=== PATIENT | male | born 1995 | race Two or more races ===

== ENCOUNTER 2021-12-18 19:24 | Emergency (ER) | payer OTHER ==
[2021-12-18 20:00] VITALS: TEMP 98.3; BMI 27.8
[2021-12-18] MEDS ORDERED: IBUPROFEN 600 MG TABLET (FP) PO ONE ×2 (20:24→20:39)
[2021-12-18 20:37] VITALS: BP 116/66
[2021-12-18 22:24] VITALS: PULSE 100
[2021-12-19 13:09] LABS: SARS-CoV-2 NAA Not Detected (Not Detected)
== END 2021-12-18 22:42 | disposition home or self-care (01) ==
LOC: JER 19:24
DX: M79.10 Myalgia, unspecified site (principal)
CPT/HCPCS: 87804; 99283-25; C9803; U0003; U0005

== ENCOUNTER 2021-12-20 03:45 | Emergency (ER) | payer OTHER ==
[2021-12-20 04:04] VITALS: BP 124/83; PULSE 100; TEMP 98.4; BMI 29.9
[2021-12-20] MEDS ORDERED: KETOROLAC TROMETHAMINE 30 MG/1 ML VIAL IM ONE (04:49)
[2021-12-20] MEDS ORDERED: PENICILLIN G BENZATHINE 1,200,000 UNIT/2 ML PFS IM ONE ×2 (04:49→04:57)
[2021-12-20] MEDS ORDERED: KETOROLAC TROMETHAMINE 30 MG/1 ML VIAL ONE (04:56)
== END 2021-12-20 05:55 | disposition home or self-care (01) ==
LOC: JER 03:45
PROC: 3E023GC Introduction of Other Therapeutic Substance into Muscle, Percutaneous Approach (ICD-10-PCS; principal; 2021-12-20)
DX: J02.0 Streptococcal pharyngitis (principal)
CPT/HCPCS: 87651; 99284-25

== ENCOUNTER 2023-07-24 13:46 | Emergency (ER) | payer OTHER ==
[2023-07-24 13:57] VITALS: BP 124/79; PULSE 87; RESP 16; TEMP 97.5
== END 2023-07-24 16:08 | disposition home or self-care (01) ==
LOC: JERFT 13:46
DX: M25.512 Pain in left shoulder (principal); V89.2XXD Person injured in unspecified motor-vehicle accident, traffic, subsequent encounter; Y93.9 Activity, unspecified; Y92.9 Unspecified place or not applicable
CPT/HCPCS: 73030-TC-LT-FY; 99283-25